=== PATIENT | male | born 1995 | race Caucasian/White ===

== ENCOUNTER 2016-12-09 14:51 | Emergency (ER) | payer OTHER ==
--- NOTE | 2016-12-09 15:26 | EDPHY ---
H & P Time Seen by Provider: 12/09/16 15:07 HPI/ROS: CHIEF COMPLAINT: Flu-like symptoms since this morning HISTORY OF PRESENT ILLNESS: 20-year-old immunocompetent male complaining of flu -like symptoms since early hours this morning including myalgia, sore throat, rhinorrhea, subjective fever. His roommate was recently diagnosed with influenza completed a course of Tamiflu. Patient denies cough. Denies: Abdominal pain, nausea, vomiting, international travel in the past 30 days, chest pain, back pain, urinary abnormality REVIEW OF SYSTEMS: A ten point review of systems was performed and is negative with the exception of the items mentioned in the HPI PAST MEDICAL & SURGICAL HISTORY: No pertinent medical or surgical history SOCIAL HISTORY: Student PHYSICAL EXAM (Prior to examination, patient consented to physical exam, hands were washed and my usual and customary physical exam procedures followed) 1) GENERAL: Well-developed, well-nourished, alert and oriented. Appears nontoxic 2) HEAD: Normocephalic, atraumatic 3) HEENT: Pupils equal, round, reactive to light bilaterally. Sclera anicteric. Nasopharynx, oropharynx, clear, no lesions. No tonsillar enlargement or exudate. Posterior oropharynx is erythematous. No trismus no drooling Ears bilaterally with normal tympanic membranes. 4) NECK: Full range of motion, no meningeal signs. 5) LUNGS: Clear auscultation bilaterally, no wheezes, no rhonchi, no retractions. 6) HEART: Regular rate and rhythm, no murmur, no heave, no gallop. 7) ABDOMEN: No guarding, no rebound, no focal tenderness, negative McBurney's, negative Sinclair's, negative Rovsing's, negative peritoneal sign, 8) MUSCULOSKELETAL: No peripheral edema or discoloration. 9) BACK: No CVA tenderness 10) SKIN: No rash, no petechiae. 11) Psychiatric: Patient is oriented X 3, there is no agitation. DIFFERENTIAL DIAGNOSIS: in no particular include but limited to meningitis, pneumonia, influenza, bronchitis, viral syndrome Smoking Status: Current every day smoker Constitutional: Initial Vital Signs Temperature (C) 37.7 C 12/09/16 14:55 Heart Rate 102 H 12/09/16 14:55 Respiratory Rate 18 12/09/16 14:55 Blood Pressure 101/67 12/09/16 14:55 O2 Sat (%) 96 12/09/16 14:55 O2 Delivery Mode Room Air Allergies/Adverse Reactions: No Known Allergies Allergy (Unverified 12/09/16 15:00) Home Medications: Medication Instructions Recorded Amphet Asp and D/Amphet [Adderall 10 mg PO 12/09/16 10 MG (*)] Oseltamivir Phosphate [Tamiflu] 75 mg PO BIDMEAL 5 Days 12/09/16 MDM/Departure - [facility] ED Course/Re-evaluation: Based on patient's exposure to roommate who recently was diagnosed with influenza and current presenting symptoms, high clinical suspicion for influenza. Recommended treatment with Tamiflu. He declines testing. I do not think that chest x-ray indicated as lungs are clear bilaterally, is breathing comfortably, maintaining normal saturations. Do not think that hospitalization is indicated. Usual and customary strict return precautions and instructions provided. He feels comfortable being discharged - Depart Disposition: Home, Routine, Self-Care Clinical Impression: Influenza-like illness Condition: Good Instructions: Influenza (ED) Additional Instructions: Return to the emergency department immediately for change in breathing habits, change in voice, change in swallowing habits, change in mental status, or any other symptoms that concern you. Prescriptions: Oseltamivir Phosphate [Tamiflu] 75 mg PO BIDMEAL 5 Days Referrals: [facility]. [Clinic] - 1-2 days without fail
[2016-12-09 15:36] VITALS: BP 105/77; PULSE 90; RESP 16; TEMP 98.1; O2SAT 95
== END 2016-12-09 15:50 | disposition home or self-care (01) ==
DX: J11.1 Influenza due to unidentified influenza virus with other respiratory manifestations (principal); F17.200 Nicotine dependence, unspecified, uncomplicated

== ENCOUNTER 2018-01-01 11:59 | Emergency (ER) | payer OTHER ==
[2018-01-01] MEDS ORDERED: LIDOCAINE 2% VISCOUS 15 ML UDCUP PO ONE (12:26)
[2018-01-01] MEDS ORDERED: DEXAMETHASONE 4 MG TAB PO ONE (12:26)
--- NOTE | 2018-01-01 12:27 | EDPHY ---
H & P Stated Complaint: SWOLLEN R TONSIL Time Seen by Provider: 01/01/18 12:23 HPI/ROS: HPI: This is a 22-year-old male who presents with Chief Complaint: Swollen right tonsil Location: Throat Quality: Swollen Duration: 3 days Signs and Symptoms: no fever, no nausea, no vomiting, no diarrhea, no urinary symptoms, no chest pain, no shortness of breath, no wheezing, no cough, + sore throat, no neck stiffness, no joint pain, no swollen glands, no ear pain, no rash Timing: Acute Severity: Mild Context: Patient is a student at [employer] reports that he woke up approximately 3 days ago with a sore throat. He complains of a right swollen tonsil with white exudate on it. He denies any fever, cough, neck stiffness. He has been using Cepacol [id number] throat lozenges with mild transient relief. He reports that several times per year he comes down with tonsillitis. Reports that certain foods irritate his throat but he is able to drink liquids. Modifying Factors: None Comment: ROS: see HPI Constitutional: No fever, no chills, no weight loss Eyes: No blurred vision Respiratory: No shortness of breath, no cough Cardiovascular: No chest pain, no palpitations Gastrointestinal: No nausea, no vomiting, no diarrhea, no hematemesis, no blood in stool Genitourinary: No dysuria, no blood in urine Extremities: No myalgias, no edema Neurologic: No weakness, no numbness Skin: No rashes, no petechiae Hematologic: No bruising, no bleeding MEDICAL/SURGICAL/SOCIAL HISTORY: Medical history: ADD Surgical history: Denies Social history: Student at [employer]. Originally from [place], [place]. Family history noncontributory. Tobacco user CONSTITUTIONAL: Extremely pleasant young adult white male, awake and alert, no obvious distress HEENT: Atraumatic and normocephalic, PERRL, EOMI. Nares patent; no rhinorrhea; no nasal mucosal edema. Tympanic membranes clear. Oropharynx clear, tonsils 2 + with mild erythema and white exudate and moist pink mucosa. Airway patent. Eseg-ej-ykqawbjo anterior cervical lymphadenopathy. No meningismus. Cardiovascular: Normal S1/S2, regular rate, regular rhythm, without murmur rub or gallop. PULMONARY/CHEST: Symmetrical and nontender. Clear to auscultation bilaterally. Good air movement. No accessory muscle usage. ABDOMEN: Soft, nondistended, nontender, no rebound, no guarding, no peritoneal signs, no masses or organomegaly. No CVAT. EXTREMITIES: 2/2 pulses, strength 5/5, no deformities, no clubbing, no cyanosis or edema. NEUROLOGICAL: no focal neuro deficits. GCS 15. SKIN: Warm and dry, no erythema. no rash. Good capillary refill. Source: Patient Exam Limitations: No limitations - Personal History Current Tetanus Diphtheria and Acellular Pertussis (TDAP): Yes - Medical/Surgical History Hx Asthma: No Hx Chronic Respiratory Disease: No Hx Diabetes: No Hx Cardiac Disease: No Hx Renal Disease: No Hx Cirrhosis: No Hx Alcoholism: No Hx HIV/AIDS: No Hx Splenectomy or Spleen Trauma: No Other PMH: add - Social History Smoking Status: Current every day smoker Constitutional: Initial Vital Signs Temperature (C) 37 C 01/01/18 12:02 Heart Rate 88 01/01/18 12:02 Respiratory Rate 18 01/01/18 12:02 Blood Pressure 114/60 01/01/18 12:02 O2 Sat (%) 95 01/01/18 12:02 O2 Delivery Mode Room Air Allergies/Adverse Reactions: No Known Allergies Allergy (Verified 01/01/18 12:02) Home Medications: Medication Instructions Recorded Amphet Asp and D/Amphet [Adderall 10 mg PO 12/09/16 10 MG (*)] Cephalexin [Keflex (*)] 500 mg PO TID #30 cap 01/01/18 Medical Decision Making ED Course/Re-evaluation: Vital signs stable upon arrival. Strep test positive; given Keflex and RX x 10 days Given Decadron 8 mg and 15 mL of viscous lidocaine No signs of tonsillar abscess/airway compromise/meningitis This patient was seen under the supervision of my secondary supervising physician. I evaluated care for this patient independently. Discussed this patient with Dr. Son who did not see the patient. Differential Diagnosis: Differential diagnosis includes but is not limited to upper respiratory infection, allergic rhinosinusitis, strep pharyngitis, viral pharyngitis. - Data Points Laboratory Results: 01/01/18 12:00 Group A Strep Screen POSITIVE H (NEGATIVE) Departure - Departure Disposition: Home, Routine, Self-Care Clinical Impression: Streptococcal tonsillitis Condition: Good Instructions: Strep Throat (ED), Tonsillitis (ED) Additional Instructions: Consume a minimum of 8-10 glasses of water or electrolyte fluid replacement drinks that include Gatorade, Powerade, Pedialyte. Eat a bland diet for the next 48 hours and then slowly advance as tolerated. Take Keflex 3 times a day times 10 days until complete. Do not skip a dose. Return to the ER immediately if you cannot swallow, have drooling, fevers, neck stiffness, cannot open your jaw, or any other symptoms that concern you. Referrals: [facility],. [Clinic] - 3-4 days, if not improved Prescriptions: Cephalexin [Keflex (*)] 500 mg PO TID #30 cap
[2018-01-01] MEDS ORDERED: CEPHALEXIN 500 MG CAP PO ONE (12:30)
[2018-01-01 12:59] VITALS: BP 144/85
== END 2018-01-01 13:07 | disposition home or self-care (01) ==
DX: J03.00 Acute streptococcal tonsillitis, unspecified (principal); F17.200 Nicotine dependence, unspecified, uncomplicated

== ENCOUNTER 2018-08-23 12:47 | Emergency (ER) | payer OTHER ==
[2018-08-23] MEDS ORDERED: IBUPROFEN 600 MG TAB PO ONE (13:42)
--- NOTE | 2018-08-23 13:44 | EDPHY ---
H & P Time Seen by Provider: 08/23/18 13:19 HPI/ROS: CHIEF COMPLAINT: Left-sided chest pain HISTORY OF PRESENT ILLNESS: Patient noticed this morning sharp chest pain just the left of his sternum. Little bit worse with movement and deep breathing. He is wondering if it is related to partying last night for his friends 22st birthday with the amount of E cigarettes that he smokes. No injury or trauma no coughing or leg swelling or hemoptysis. No belching or burping and no abdominal symptoms. No vomiting or diarrhea. Symptoms mild at this time. REVIEW OF SYSTEMS: Eye: no change in vision ENT: no sore throat Cardiac: HPI no palpitations Pulmonary: no cough or SOB Abdomen: no vomiting, diarrhea, abdominal pain Musculoskeletal: no back pain Skin: no rash Neuro: no headache Constitutional: no fever : no urinary symptoms A comprehensive 10 point review of systems is otherwise negative aside from elements mentioned in the history of present illness. PAST MEDICAL HISTORY: Attention deficit hyperactivity disorder only, no recent surgery Family history: Negative for premature coronary disease or venous thromboembolism Social history: Recent travel or immobilization, smokes E cigarettes General Appearance: Alert and conversant, cooperative. Eyes: No scleral icterus. ENT, Mouth: Normal mucous membranes. Respiratory: Normal respiratory effort, breath sounds equal, lungs are clear to auscultation. No crepitus. No wheezing. Cardiovascular: Regular rate and rhythm. Gastrointestinal: Abdomen is soft and non tender. Neurological: Alert, face symmetric, normal motor and sensory in extremities. Skin: Warm and dry, no rashes. Musculoskeletal: No calf tenderness. Legs are symmetric. Psychiatric: Not agitated. Emergency Department course/MDM: More likely to be muscular or inflammatory than GERD. Patient is PERC negative for pulmonary embolism. Differential diagnosis considered for chest pain including but not limited to myocardial ischemia, aortic dissection, pericarditis, pulmonary embolus, chest wall pain, pleural inflammation and pulmonary infectious causes. Symptomatic treatment advised. Smoking Status: Current every day smoker Constitutional: Initial Vital Signs Temperature (C) 36.9 C 08/23/18 12:51 Heart Rate 73 08/23/18 12:51 Respiratory Rate 18 08/23/18 12:51 Blood Pressure 96/60 L 08/23/18 12:51 O2 Sat (%) 95 08/23/18 12:51 O2 Delivery Mode Room Air Allergies/Adverse Reactions: No Known Allergies Allergy (Verified 08/23/18 12:50) Home Medications: Medication Instructions Recorded Amphet Asp and D/Amphet [Adderall 10 mg PO 12/09/16 10 MG (*)] Medical Decision Making - Diagnostics EKG Interpretation: 12-lead EKG interpreted by me; official reading is in computer system. My interpretation is sinus rhythm at rate 71 with early repolarization no ischemic changes. Imaging Results: Imaging Impressions Chest X-Ray 08/23/18 13:42 Impression: Excellent inspiration. No pneumonia. Imaging: I viewed and interpreted images myself Differential Diagnosis: Differential diagnosis considered for chest pain including but not limited to myocardial ischemia, aortic dissection, pericarditis, pulmonary embolus, chest wall pain, pleural inflammation and pulmonary infectious causes. - Data Points Medications Given: Discontinued Medications Ibuprofen (Motrin) 600 mg PO EDNOW ONE Stop: 08/23/18 13:43 Last Admin: 08/23/18 13:54 Dose: 600 mg Departure - Departure Disposition: Home, Routine, Self-Care Clinical Impression: Chest pain Qualifiers: Chest pain type: unspecified Qualified Code(s): R07.9 - Chest pain, unspecified Condition: Good Instructions: Chest Pain (ED) Additional Instructions: Normal chest x-ray and EKG. Referrals: [facility],. [Clinic] - As per Instructions
[2018-08-23 14:23] VITALS: BP 102/87
--- NOTE | 2018-08-23 14:37 | CPEKG ---
Test Reason : OPEN Blood Pressure : / mmHG Vent. Rate : 071 BPM Atrial Rate : 069 BPM P-R Int : 164 ms QRS Dur : 099 ms QT Int : 401 ms P-R-T Axes : 063 064 035 degrees QTc Int : [address] elev, probable normal early repol pattern Confirmed by Sanket Ramey ([id number]) on 08/23/2018 2:36:29 PM Referred By: Confirmed By:Sanket Ramey
== END 2018-08-23 14:23 | disposition home or self-care (01) ==
DX: R07.89 Other chest pain (principal)

== ENCOUNTER 2018-09-14 19:47 | Emergency (ER) | payer OTHER ==
--- NOTE | 2018-09-14 20:15 | EDPHY ---
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 Patient is stable on arrival with no hypoxia, tachypnea or respiratory distress. No clinical signs to suggest exudative tonsillitis, peritonsillar abscess, retropharyngeal abscess , or severe dehydration. Rapid flu was positive. Rapid strep negative. Patient was given Tamiflu by request. Supportive care encouraged at home, PCP follow-up recommended, warning signs return to ED sooner outlined and discharge. DIFFERENTIAL DX: Differential includes but not limited to viral pharyngitis, exudative tonsillitis, peritonsillar abscess, dehydration, influenza, influenza like syndrome ED PROCEDURES: See lab and/or imaging results below ED COURSE: 8:20 p.m.: Patient assessed by myself. Vital signs stable. Tolerating secretions well. No clinical signs of peritonsillar abscess, retropharyngeal abscess, epiglottitis. Patient took a subtherapeutic dose of ibuprofen prior to arrival. He brought ibuprofen with him. I offered to give him Tylenol or he can take his ibuprofen that he brought. Rapid strep and rapid flu ordered. 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 Patient took 200 mg of ibuprofen prior to arrival. He spoke to his roommate and his mother who advised he come to the emergency department and be checked for flu. He did not get a flu shot this year. He reports no history of chronic strep throat. He has been able to eat and drink. No reported abdominal pain, nausea, vomiting. He does smoke "copious amounts of marijuana" and has smokes cigarettes in the past. No reported underlying pulmonary disease. PAST MEDICAL HISTORY: Attention deficit hyperactivity disorder See triage summary and nurse notes for addition applicable history Pertinent Past Surgical History: None reported Family History: Noncontributory Social History: Smokes cigarettes and marijuana, [employer] student REVIEW OF SYSTEMS: A full 10 point review of systems was negative except for those mentioned in HPI. PHYSICAL EXAM: General Appearance: Alert, oriented, appropriate, cooperative, NAD, well hydrated, non-toxic appearing, tachycardic, appears mildly anxious, no hypoxia. HEENT: TMs are clear bilaterally no perforation or FB, no injection, no evidence of serous or mucopurulent otitis. Oropharynx clear mild bilateral erythema without exudates, no tonsillar hypertrophy or asymmetry. Dentition without abnormality. Eyes: PERRLA, no acute vision change, nystagmus, swelling, discharge, pain or photosensitivity. Conjunctiva pink, no pallor or injection Neck: Supple, nontender, no lymphadenopathy, no midline pain, FROM, no meningismus. Respiratory: There are no retractions, lungs are clear to auscultation. Cardiac: Regular rate and rhythm, no murmurs or gallops. Gastrointestinal: Abdomen is soft, nontender, bowel sounds normal, no masses/ hernia, no rigidity, guarding or focal peritoneal findings. Skin: Warm, dry, no rashes, no nodules on palpation. MEDICAL DECISION MAKING: Patient was seen independently. Secondary supervising physician at time of evaluation was: Dr Archer . Diagnosis: Pharyngitis, influenza . New, requires workup Summary: See Assessment and Plan for summary of ED visit Clinical lab tests: ordered / reviewed. Patient Progress: Improved. - History Smoking Status: Current some day smoker - Objective Vital Signs: Initial Vital Signs Temperature (C) 38.1 C 09/14/18 19:50 Heart Rate 105 H 09/14/18 19:50 Respiratory Rate 17 09/14/18 19:50 Blood Pressure 100/77 09/14/18 19:50 O2 Sat (%) 97 09/14/18 19:50 O2 Delivery Mode Room Air Allergies/Adverse Reactions: No Known Allergies Allergy (Verified 09/14/18 19:52) Home Medications: Medication Instructions Recorded Amphet Asp and D/Amphet [Adderall 10 mg PO 12/09/16 10 MG (*)] Oseltamivir Phosphate [Tamiflu 75 75 mg PO BID #10 cap 09/14/18 mg (*)] Laboratory Results: 09/14/18 09/14/18 09/14/18 Unknown 20:05 20:05 Nasal Influenza A PCR FLU A DETECTED H (NEGATIVE) Nasal Influenza B PCR NEGATIVE FOR FLU B (NEGATIVE) Group A Strep Screen NEGATIVE Cancelled (NEGATIVE) Group A Strep DNA Pending Departure - Departure Disposition: Home, Routine, Self-Care Clinical Impression: Influenza A Condition: Good Instructions: Influenza (ED) Additional Instructions: DISCHARGE INSTRUCTIONS FROM YOUR DOCTOR Thank you for visiting our emergency department today. You were treated by a physician certified physician assistant today and your case was reviewed with our ED Attending physician. Please keep in mind that discharge from the emergency department does not mean that there is nothing wrong - it simply means that we have not identified an emergency condition that requires further evaluation or treatment in the hospital. You should always plan to follow up with primary care for re- evaluation of your condition in the next 2-3 days. If you have been referred to a specialist, please call as soon as possible (today or tomorrow) to schedule your follow up appointment at the appropriate time. [YOU DO NOT HAVE STREP THROAT. YOU DO HAVE INFLUENZA A. THIS IS A VIRUS. A PRESCRIPTION FOR TAMIFLU WAS PROVIDED. PLEASE BE AWARE THIS CAN REDUCE YOUR SYMPTOMS FOR APPROXIMATELY 12 HR AND MAY CAUSE GI SIDE EFFECTS. PLEASE STAY WELL HYDRATED. PLEASE USE 1000 MG OF TYLENOL EVERY 4-6 HOURS OR 600 MG OF IBUPROFEN WITH FOOD AND A LARGE GLASS OF WATER EVERY 6-8 HOURS NEEDED FOR BODY ACHES, CHILLS AND FEVER. PLEASE FOLLOW-UP WITH [facility] OR YOUR LOCAL PRIMARY CARE DOCTOR. RETURN TO THE EMERGENCY DEPARTMENT FOR SEVERE COUGH, SHORTNESS OF BREATH, INABILITY TO STAY HYDRATED, PERSISTENT HIGH FEVERS, OR ANY OTHER CONCERNS. ] People present with illnesses and injuries in different ways, and it is always possible that we have missed something. You may always return for re-evaluation if symptoms worsen or if they are not improving or if you develop new/different symptoms. Again, thank you for choosing our emergency department. We hope that you feel better. Referrals: NONE *PRIMARY CARE P,. [Primary Care Provider] - As per Instructions [facility] [[facility]] - 1-2 days without fail Prescriptions: Oseltamivir Phosphate [Tamiflu 75 mg (*)] 75 mg PO BID #10 cap
[2018-09-14 21:12] VITALS: BP 110/82
== END 2018-09-14 21:13 | disposition home or self-care (01) ==
DX: J10.1 Influenza due to other identified influenza virus with other respiratory manifestations (principal)